=== PATIENT | male | born 1980 | race Caucasian/White ===

== ENCOUNTER 2018-08-23 13:04 | Emergency (ER) | payer BC ==
[2018-08-23 13:56] VITALS: BP 177/107
--- NOTE | 2018-08-23 14:08 | UC ---
Throat Pain/Nasal Oswaldo HPI - HPI Summary HPI Summary: sinus pain and pressure x 4 weeks productive cough , nasal congestion , pnd no fever, no chills - History of Current Complaint Chief Complaint: UCRespiratory Stated Complaint: CONGESTION,COUGH,SINUS COMPLAINT Time Seen by Provider: 08/23/18 13:59 Hx Obtained From: Patient Onset/Duration: Gradual Onset, Lasting Weeks - 4, Still Present Severity: Moderate Pain Intensity: 3 Cough: Productive Associated Signs & Symptoms: Negative: Dysphagia, Sinus Discomfort, Nasal Discharge, Fever, Vomiting, Rash - Allergies/Home Medications Allergies/Adverse Reactions: Allergies Allergy/AdvReac Type Severity Reaction Status Date / Time No Known Allergies Allergy Verified 08/23/18 13:49 Home Medications: Home Medications Hydrochlorothiazide TAB* [Hydrodiuril TAB*] 1 tab DAILY 08/23/18 [History Confirmed 08/23/18] Losartan TAB* [Cozaar TAB*] 1 tab DAILY 08/23/18 [History Confirmed 08/23/18] PMH/Surg Hx/FS Hx/Imm Hx Cardiovascular History: Hypertension - Surgical History Surgical History: Yes Surgery Procedure, Year, and Place: L knee x 2 - Family History Known Family History: Positive: Hypertension - Social History Alcohol Use: Occasionally Substance Use Type: None Smoking Status (MU): Never Smoked Tobacco Type: Cigars Amount Used/How Often: special occasions - Immunization History Most Recent Influenza Vaccination: current Review of Systems All Other Systems Reviewed And Are Negative: Yes Constitutional: Positive: Negative Skin: Positive: Negative Eyes: Positive: Negative ENT: Positive: Ear Ache, Nasal Discharge, Sinus Congestion, Sinus Pain/ Tenderness Respiratory: Positive: Cough Cardiovascular: Positive: Negative Is Patient Immunocompromised?: No Physical Exam Triage Information Reviewed: Yes Appearance: Well-Appearing, No Pain Distress, Obese Vital Signs: Initial Vital Signs Temp 97.6 F 08/23/18 13:50 Pulse 81 08/23/18 13:50 Resp 16 08/23/18 13:50 BP 177/107 08/23/18 13:50 Pulse Ox 97 08/23/18 13:50 Vital Signs Reviewed: Yes Eye Exam: Normal Eyes: Positive: Conjunctiva Clear ENT: Positive: Normal ENT inspection, Hearing grossly normal, Nasal congestion, Nasal drainage, TMs normal, Sinus tenderness. Negative: TM bulging, TM dull, TM red, Tonsillar swelling, Tonsillar exudate Neck: Positive: Supple, Nontender, No Lymphadenopathy Respiratory: Positive: Chest non-tender, Lungs clear, Normal breath sounds Cardiovascular: Positive: RRR, No Murmur, Pulses Normal Skin Exam: Normal Throat Pain/Nasal Course/Dx - Differential Dx/Diagnosis Provider Diagnosis: Sinusitis Discharge - Sign-Out/Discharge Documenting (check all that apply): Patient Departure All imaging exams completed and their final reports reviewed: No Studies - Discharge Plan Condition: Stable Disposition: HOME Prescriptions: Amoxicillin/Clavulanate TAB* [Augmentin TAB 875*] 875 mg PO BID #20 tab Benzonatate CAP* [Tessalon 100 MG CAP*] 100 mg PO TID #15 cap predniSONE [Prednisone 20 MG TAB] 20 mg PO DAILY #5 tablet Patient Education Materials: Sinusitis (ED) Referrals: Hilda Daley MD [Primary Care Provider] - If Needed - Billing Disposition and Condition Condition: STABLE Disposition: Home
== END 2018-08-23 14:10 | disposition home or self-care (01) ==
LOC: UCCORT 13:04
DX: J32.9 Chronic sinusitis, unspecified (principal); I10 Essential (primary) hypertension
CPT/HCPCS: 99202; G0463